=== PATIENT | male | born 1990 | race Caucasian/White ===

== ENCOUNTER → 2018-06-09 | Outpatient (CLI) | payer OTHER | LOC: GMAE 14:46 | PROVIDERS: ATTEND Family Medicine | DX: Z00.01 Encounter for general adult medical examination with abnormal findings (principal) ==

== ENCOUNTER → 2019-10-06 | Outpatient (CLI) | payer OTHER ==
--- NOTE | 2019-10-06 14:14 | US ---
EXAM DESCRIPTION: Testicular: Ultrasound. CLINICAL HISTORY: 28 years Male TESTICULAR PAIN COMPARISON: None. TECHNIQUE: Transcutaneous scanning ; maher-scale and Doppler modes. FINDINGS: Dimensions of the right testicle are 4.5 x 3.0 x 2.4 cm, with normal echogenicity and normal color Doppler flow. Epididymal head measures 11.9 x 9.1 x 7.2 mm, with 2 cysts measuring 5.0 x 4.8 mm, and 5.5 x 3.0 mm.. Otherwise normal echogenicity and normal color Doppler flow. No scrotal wall thickening. Small Hydrocele. Dimensions of the left testicle are 4.3 x 3.2 x 2.5 cm, with normal echogenicity and normal color Doppler flow. Epididymal head measures 16 x 8.2 x 8.1 mm, with 4.8 mm cyst and 2.4 mm cyst. Otherwise normal echogenicity and normal color Doppler flow. No scrotal wall thickening. Small Hydrocele. IMPRESSION: 1. Normal size echogenicity and vascularity of the bilateral testicles. 2. Normal size of the bilateral epididymides. Epididymal head cysts are common and are rarely complicated or a source of pain. 3. Small bilateral hydroceles. Electronically signed by: Leonidas Curtis MD 10/06/2019 2:12 PM DIRECTOR [employer]
== END ==
LOC: LAB.O 11:44
PROVIDERS: ATTEND Family Medicine
DX: N50.3 Cyst of epididymis (principal); N43.3 Hydrocele, unspecified

== ENCOUNTER 2020-10-13 08:50 | Emergency (ER) | payer OTHER ==
[2020-10-13] MEDS ORDERED: SODIUM CHLORIDE 0.9% (FLUSH) 10 ML SYG IV PRN (08:53)
[2020-10-13] MEDS ORDERED: SODIUM CHLORIDE 0.9% 1000ML 1,000 ML IVS ONE (08:53)
--- NOTE | 2020-10-13 09:14 | RAD ---
EXAM DESCRIPTION: Chest,1 View CLINICAL HISTORY: 29 years Male, hypoxia and cough COMPARISON: None. Findings: One view(s)/radiograph(s) Multifocal pneumonia. Cardiac silhouette and pulmonary vasculature are within normal limits. No pneumothorax. No pleural effusion. No acute osseous abnormality. IMPRESSION: Multifocal pneumonia. Electronically signed by: Eugene Cannon MD 10/13/2020 9:12 AM TRAFFIC INVESTIGATOR
[2020-10-13] MEDS ORDERED: KETOROLAC TROMETHAMINE INJ 30 MG/ML VIAL IV ONE (09:50)
--- NOTE | 2020-10-13 09:58 | ED.PDOC ---
History of Present Illness - General Chief Complaint: General Stated Complaint: covid, RUQ abd pain Time Seen by Provider: 10/13/20 08:53 Source: patient, RN notes reviewed, Vital Signs reviewed, RN/MD - Dr. Nevarez Exam Limitations: no limitations - History of Present Illness Initial Comments: Patient is a 29-year-old white male who presents with complaints of shortness of breath, fever and right upper quadrant pain. Patient was diagnosed with Covid 2 days ago but has had symptoms for the last 8 days. Patient has had this low- grade nausea, diarrhea and right upper quadrant pain for the last 3 to 4 days. Patient was diagnosed with Covid yesterday and has been running fevers for the last 2 to 3 days. Patient also complains of body aches. Patient's abdominal pain is sharp and stabbing in nature. It is waxing and waning and intermittent in nature. There is no radiation of the pain. Is moderate in intensity. Timing/Duration: getting worse, intermittent Severity: moderate Improving Factors: nothing Worsening Factors: nothing Associated Symptoms: cough, fever/chills, loss of appetite, nausea/vomiting - nausea and diarrhea, no vomiting, shortness of breath Allergies/Adverse Reactions: Allergies Prochlorperazine [From Compazine] Allergy (Verified 10/13/20 09:05) Home Medications: Ambulatory Orders Methylprednisolone [Medrol Dose Lino] 4 mg PO DAILY 6 Days #21 tab 10/13/20 Omeprazole Magnesium [Prilosec Otc] 20 mg PO DAILY 10/13/20 Review of Systems - Review of Systems Constitutional: States: see HPI, chills, fever, malaise, weakness EENTM: States: no symptoms reported. Denies: eye pain, blurred vision, double vision, throat pain Respiratory: States: see HPI, cough, short of breath. Denies: stridor, wheezing Cardiology: States: no symptoms reported. Denies: chest pain, palpitations, syncope Gastrointestinal/Abdominal: States: see HPI, abdominal pain, diarrhea, nausea. Denies: vomiting Genitourinary: States: no symptoms reported. Denies: dysuria, frequency Musculoskeletal: States: see HPI, joint pain. Denies: back pain, neck pain Skin: States: no symptoms reported. Denies: change in color, rash Neurological: States: see HPI, weakness. Denies: headache, numbness, tremors Endocrine: States: no symptoms reported. Denies: increased hunger, increased thirst, increased urine Hematologic/Lymphatic: States: no symptoms reported. Denies: blood clots, easy bleeding All other Systems: Reviewed and Negative Past Medical History (General) - Patient Medical History Hx Dementia: No Hx Asthma: No Hx Cardiac Disorders: No Hx Hypertension: No Hx Thyroid Disease: No Hx Gastroesophageal Reflux: Yes Hx Renal Disease: No Family Medical History - Family History Mother Family History: Unknown Physical Exam - Physical Exam General Appearance: Alert, Anxious, Obvious distress, Restless, Well Developed, Well Groomed, Well Hydrated, Well Nourished Eye Exam: bilateral normal Ears, Nose, Throat: hearing grossly normal, normal ENT inspection, normal phary nx Neck: non-tender, full range of motion, supple Respiratory: chest non-tender, lungs clear, normal breath sounds, no respiratory distress, no accessory muscle use Cardiovascular/Chest: normal peripheral pulses, no edema, no gallop, no JVD, no murmur, tachycardia Peripheral Pulses: radial,right: 2+, radial,left: 2+ Gastrointestinal/Abdominal: normal bowel sounds, no organomegaly, no pulsatile mass, tenderness - RUQ Back Exam: normal inspection, no CVA tenderness, no vertebral tenderness Extremity: normal range of motion, non-tender, normal inspection Neurologic: metallurgist process II-XII nml as tested, no motor/sensory deficits, alert, normal mood/affect, oriented x 3 Skin Exam: normal color, warm/dry Lymphatic: no adenopathy Progress - Progress Progress: Differential diagnosis: Pneumonia, COVID-19, cholecystitis, bowel obstruction among others. 10/13/20 12:21 Patient's pain is markedly improved after Toradol. Additionally his body aches have resolved. Patient does have multifocal opacities in his lungs consistent with COVID-19. I will discharge patient home on a Medrol Dosepak I discussed the plan of care with his PCP, Dr. Nevarez as well as with the patient and they voiced understanding and agreement with the plan of care. 10/13/20 13:[address] Nevarez over the lunch hour. Will discharge patient home at this time. I discussed this plan of care with the patient he voices understanding and agreement. Remington Davenport M.D. #[id number] - Results/Orders Results/Orders: 10/13/20 08:53 IV Care:Saline Lock per Protoc QSHIFT Sodium Chloride 0.9% (Flush) [Saline Flush Syringe] 10 ml IV PRN PRN 10/13/20 09:00 EKG STAT 10/13/20 09:56 Abdomen,Limited [US] Stat Laboratory Results - last 24 hr 10/13/20 10/13/20 10/13/20 09:10 09:10 09:10 WBC 3.1 L RBC 5.45 Hgb 17.2 Hct 50.5 MCV 92.6 MCH 31.5 H MCHC 34.1 RDW 12.7 Plt Count 184 MPV 8.3 Absolute Neuts (auto) 1.70 L Absolute Lymphs (auto) 1.00 Absolute Monos (auto) 0.30 Absolute Eos (auto) 0.00 Absolute Basos (auto) 0.00 Neutrophils % 55.7 Lymphocytes % 32.3 Monocytes % 11.0 H Eosinophils % 0.4 L Basophils % 0.6 D-Dimer, Quantitative < 100.0 L Sodium 140 Potassium 4.0 Chloride 106 Carbon Dioxide 28 Anion Gap 10.0 L BUN 10 Creatinine 1.17 BUN/Creatinine Ratio 8.5 L Random Glucose 100 Serum Osmolality 278.5 Calcium 9.3 Total Bilirubin 0.6 Direct Bilirubin 0.1 Indirect Bilirubin 0.5 AST 49 H ALT 43 Alkaline Phosphatase 70 C-Reactive Protein Serum Total Protein 7.8 Albumin 4.4 Lipase 46 Urine Color Urine Appearance Urine pH Ur Specific [place] Urine Protein Urine Glucose (UA) Urine Ketones Urine Blood Urine Nitrite Urine Bilirubin Urine Urobilinogen Ur Leukocyte Esterase Urine RBC Urine WBC Ur Epithelial Cells Urine Bacteria 10/13/20 10/13/20 09:10 09:12 WBC RBC Hgb Hct MCV MCH MCHC RDW Plt Count MPV Absolute Neuts (auto) Absolute Lymphs (auto) Absolute Monos (auto) Absolute Eos (auto) Absolute Basos (auto) Neutrophils % Lymphocytes % Monocytes % Eosinophils % Basophils % D-Dimer, Quantitative Sodium Potassium Chloride Carbon Dioxide Anion Gap BUN Creatinine BUN/Creatinine Ratio Random Glucose Serum Osmolality Calcium Total Bilirubin Direct Bilirubin Indirect Bilirubin AST ALT Alkaline Phosphatase C-Reactive Protein < 0.8 Serum Total Protein Albumin Lipase Urine Color Yellow Urine Appearance Clear Urine pH 7.5 Ur Specific [place] 1.020 Urine Protein Negative Urine Glucose (UA) Negative Urine Ketones Negative Urine Blood Negative Urine Nitrite Negative Urine Bilirubin Negative Urine Urobilinogen 0.2 Ur Leukocyte Esterase Negative Urine RBC 0 Urine WBC 0 Ur Epithelial Cells 0-1 Urine Bacteria 0 EXAM DESCRIPTION: Chest,1 View CLINICAL HISTORY: 29 years Male, hypoxia and cough COMPARISON: None. Findings: One view(s)/radiograph(s) Multifocal pneumonia. Cardiac silhouette and pulmonary vasculature are within normal limits. No pneumothorax. No pleural effusion. No acute osseous abnormality. IMPRESSION: Multifocal pneumonia. Electronically signed by: Eugene Cannon MD 10/13/2020 9:12 AM EXAM DESCRIPTION: Abdomen,Limited: ULTRASOUND. CLINICAL HISTORY: RUQ pain COMPARISON: None. TECHNIQUE: Transabdominal scanning: maher-scale mode. Doppler mode. FINDINGS: Gallbladder: normal size, shape, echogenicity; no intraluminal stones or sludge. No fluid around the gallbladder. No wall thickening. 2.4 mm Non-tender with transducer pressure. Common bile duct: caliber 4.4 mm within normal limits. Liver: normal echogenicity; contour liver capsule smooth where seen. No fluid around the liver. Intrahepatic biliary ducts normal caliber. Doppler hepatopedal flow and normal caliber portal vein.. 9.3 mm. Long axis right lobe 14.45 cm. Pancreas: normal size and echogenicity. Duct not seen. Proximal abdominal aorta: 1.9 cm. IVC: visualized and normal caliber. Right kidney: long axis measures 12.0 cm; volume 182.1 ml. Cortical echogenicity is no rmal.. Cortical thickness normal range.. No echogenic stones; no hydronephrosis. IMPRESSION: Normal ultrasound of the abdomen. No organomegaly. Normal caliber of the intrahepatic and extrahepatic ducts. No ascites. No ultrasound findings concordant with clinical findings. Electronically signed by: Leonidas Curtis MD 10/13/2020 11:50 AM [employer] EKG performed 13 October 2020 at 0914 hrs.: Normal sinus rhythm at 90 bpm, normal axis deviation, nonspecific T wave flattening inferiorly, abnormal EKG. No acute ischemia at this time. No comparison EKG available. Departure - Departure Clinical Impression: COVID-19 Pneumonia Qualifiers: Pneumonia type: due to unspecified organism Laterality: bilateral Lung location: unspecified part of lung Qualified Code(s): J18.9 - Pneumonia, unspecified organism Time of Disposition: 12:27 Disposition: Discharge to Home or Self Care Condition: Fair Departure Forms: ED Discharge - Pt. Copy, Patient Portal Self Enrollment Instructions: Pneumonia, Adult (DC), Coronavirus Disease 2019 (COVID-19) (DC) Diet: resume usual diet Activity: increase activity as tolerated Referrals: MANUEL NEVAREZ MD [Primary Care Provider] - 1-5 Days Prescriptions: Methylprednisolone [Medrol Dose Lino] 4 mg PO DAILY 6 Days #21 tab Home Medications: Ambulatory Orders Methylprednisolone [Medrol Dose Lino] 4 mg PO DAILY 6 Days #21 tab 10/13/20 Omeprazole Magnesium [Prilosec Otc] 20 mg PO DAILY 10/13/20
--- NOTE | 2020-10-13 11:52 | US ---
EXAM DESCRIPTION: Abdomen,Limited: ULTRASOUND. CLINICAL HISTORY: RUQ pain COMPARISON: None. TECHNIQUE: Transabdominal scanning: maher-scale mode. Doppler mode. FINDINGS: Gallbladder: normal size, shape, echogenicity; no intraluminal stones or sludge. No fluid around the gallbladder. No wall thickening. 2.4 mm Non-tender with transducer pressure. Common bile duct: caliber 4.4 mm within normal limits. Liver: normal echogenicity; contour liver capsule smooth where seen. No fluid around the liver. Intrahepatic biliary ducts normal caliber. Doppler hepatopedal flow and normal caliber portal vein.. 9.3 mm. Long axis right lobe 14.45 cm. Pancreas: normal size and echogenicity. Duct not seen. Proximal abdominal aorta: 1.9 cm. IVC: visualized and normal caliber. Right kidney: long axis measures 12.0 cm; volume 182.1 ml. Cortical echogenicity is normal.. Cortical thickness normal range.. No echogenic stones; no hydronephrosis. IMPRESSION: Normal ultrasound of the abdomen. No organomegaly. Normal caliber of the intrahepatic and extrahepatic ducts. No ascites. No ultrasound findings concordant with clinical findings. Electronically signed by: Leonidas Curtis MD 10/13/2020 11:50 AM LEMON GROWER
[2020-10-13 13:21] VITALS: BP 135/80; TEMP 97.7; O2SAT 98
== END 2020-10-13 13:13 | disposition home or self-care (01) ==
LOC: ER 08:50
DX: U07.1 COVID-19 (principal); J18.9 Pneumonia, unspecified organism; K21.9 Gastro-esophageal reflux disease without esophagitis; Z79.899 Other long term (current) drug therapy; Z88.8 Allergy status to other drugs, medicaments and biological substances
CPT/HCPCS: 36415; 71045; 76775; 80048; 80076; 81001; 83690; 85025; 85379; 86140; 93005; J1885; J7030